=== PATIENT | male | born 1960 | race Caucasian/White ===

== ENCOUNTER 2020-03-11 22:12 | Emergency (ER) | payer SELFPAY ==
[~2020-03-11] VITALS: Ht 167.6 cm; Wt 71.2 kg
--- NOTE | 2020-03-11 22:32 | Emergency Department Note ---
History of Present Illnes History of Present Illness Chief Complaint: Alcohol Abuse/Intoxication History of Present Illness This is a 59 year old male Chief Complaint Comment 59 Y/O MALE AAOX3 PRESENTS TO ED WITH REPORT OF "CRYING [place] THE [employer]." THE POLICE CALLED EMS TO EVAL PATIENT; PT DENIES ANY ABNORMAL S/S AT THIS TIME; STRONG ETOH NOTED; PT ALSO REPORTS RECENT IV HEROIN USE WITHIN PAST WEEK; Patient refuses to answer questions. Historian: Patient Arrival Mode: [place] [employer] Coordinator Required: No Onset (how long ago): unknown Location: None Quality: None Radiation: Reports non-radiation Severity: unable to specify Onset quality: unable to specify Duration (how long): hour(s) Timing of current episode: unable to specify Progression: unchanged Chronicity: new Context: Denies recent illness, Denies recent surgery Relieving factors: none Exacerbating factors: none Associated symptoms: Reports denies other symptoms Treatments prior to arrival: none (DANITA STEEN MD) Past Medical/Family History Physician Review I have reviewed the patient's past medical and family history. Any updates have been documented here. (DANITA STEEN MD) Past Medical History Recent Fever: No Clinical Suspicion of Infectio: No New/Unexplained Change in Ment: No Past Medical History: Hypertension Other Medical History: ETOH ABUSE HEROIN DRUG ABUSE Other Surgery: ABDOMEN SX (DANITA STEEN MD) Review of Systems Review of Systems Constitutional: Reports no symptoms EENTM: Reports no symptoms Cardiovascular: Reports no symptoms Respiratory: Reports no symptoms Gastrointestinal: Reports no symptoms Genitourinary: Reports no symptoms Musculoskeletal: Reports no symptoms Integumentary: Reports no symptoms Neurological: Reports no symptoms Psychological: Reports no symptoms Endocrine: Reports no symptoms Hematological/Lymphatic: Reports no symptoms (DANITA STEEN MD) Physical Exam Related Data Allergies: Coded Allergies: No Known Allergies (Unverified , 03/11/20) Triage Vital Signs Vital Signs Date Time Temp Pulse Resp B/P (MAP) Pulse Ox O2 Delivery O2 Flow Rate FiO2 03/11/20 22:19 98.2 94 16 104/62 99 Room Air Vital signs reviewed: Yes (DANITA STEEN MD) Physical Exam CONSTITUTIONAL Constitutional: Present well-developed, Present well-nourished HENT HENT: Present normocephalic, Present atraumatic, Present oropharynx clear/moist, Present nose normal HENT L/R: Present left ext ear normal, Present right ext ear normal EYES Eyes: Reports PERRL, Reports conjunctivae normal NECK Neck: Present ROM normal PULMONARY Pulmonary: Present effort normal, Present breath sounds normal CARDIOVASCULAR Cardiovascular: Present regular rhythm, Present heart sounds normal, Present capillary refill normal, Present normal rate GASTROINTESTINAL Abdominal: Present soft, Present nontender, Present bowel sounds normal GENITOURINARY Genitourinary: Present exam deferred SKIN Skin: Present warm, Present dry MUSCULOSKELETAL Musculoskeletal: Present ROM normal NEUROLOGICAL Neurological: Present alert, Present oriented x 3, Present no gross motor or sensory deficits PSYCHOLOGICAL Psychological: Present other (Refuses to answer questions); Absent judgement normal (DANITA STEEN MD) Assessment & Plan Medical Decision Making MDM 59 y.o M presents with no CC. Brought in by EMS per police request for intoxication. Refuses to answer questions. Per EMS history of ETOH and [place] on board tonight. Tox work up shows ETOH 300 and positive benzo's. Patient then later stated to nursing staff that he wanted to . MAT team to evaluate patient once alcohol decreases. (DANITA STEEN MD) Reassessment Reassessment time: 22:32 Reassessment Well appearing, NAD (DANITA STEEN MD) Reassessment PT S/E BY ME, EtOH IMPROVED, PT SEEMS DEPRESSED BUT NO CURRENT SI/HI, SAYS HE WANTS TO GO HOME - WILL HAVE MAT TEAM EVAL. MAT TEAM FEELS PT IS SAFE TO GO HOME, NO NEED FOR INPATIENT TREATMENT, WILL DC WITH THEIR RECOMMENDATIONS - RESOURCES FOR REHAB, [facility], COUNSELLING/RECOVERY PROVIDED (KAYLYNN RAJPUT MD) Assessment & Plan Final Impression: (1) Intoxication (DANITA STEEN MD) Final Impression: (1) Intoxication (2) Depression (KAYLYNN RAJPUT MD) Depart Disposition: HOME, SELF-CARE Last Vital Signs Date Time Temp Pulse Resp B/P (MAP) Pulse Ox O2 Delivery O2 Flow Rate FiO2 03/11/20 22:19 98.2 94 16 104/62 99 Room Air (DANITA STEEN MD) DANITA STEEN MD Mar 11, 2020 22:32 KAYLYNN RAJPUT MD Mar 12, 2020 11:02
[2020-03-11] MEDS ORDERED: SODIUM CHLORIDE 0.9% 1000ML 1,000 ML IV SCH (22:45)
[2020-03-11 23:01] LABS: BASOPHILS # (AUTO) 0.1 (0.0-0.1); BASOPHILS % 0.7 % (0.0-1.0); EOSINOPHILS # (AUTO) 0.3 (0.0-0.4); EOSINOPHILS % 3.8 % (0.0-6.0); HEMATOCRIT 41.3 % (38.2-49.6); HEMOGLOBIN 13.6 g/dL (14.0-18.0); LYMPHOCYTES # (AUTO) 2.7 (1.0-3.2); LYMPHOCYTES % 38.3 % (18.0-39.1); MEAN CORPUSCULAR HEMOGLOBIN 29.2 pg (28-32); MEAN CORPUSCULAR HGB CONC 32.9 g/dL (31-35); MEAN CORPUSCULAR VOLUME 88.6 fL (81-99); MONOCYTES # (AUTO) 0.6 (0.2-0.8); MONOCYTES % 7.9 % (4.4-11.3); NEUTROPHILS # (AUTO) 3.5 (2.1-6.9); PLATELET COUNT 151 x10e3/uL (140-360); RED BLOOD COUNT 4.66 x10e6/uL (4.3-5.7); RED CELL DISTRIBUTION WIDTH 13.4 % (11.7-14.4)
[2020-03-11 23:13] LABS: AMPHETAMINES SCREEN,URINE NEGATIVE (NEGATIVE); BENZODIAZEPINES SCREEN,URINE POSITIVE (NEGATIVE); BILIRUBIN,URINE NEGATIVE (NEGATIVE); CLARITY,URINE CLEAR (CLEAR); COLOR,URINE YELLOW (YELLOW); KETONES,URINE NEGATIVE (NEGATIVE); LEUKOCYTE ESTERASE ,URINE NEGATIVE (NEGATIVE); NITRITE,URINE NEGATIVE (NEGATIVE); PHENCYCLIDINE SCREEN,URINE NEGATIVE (NEGATIVE); PROTEIN,URINE DIPSTICK NEGATIVE (NEGATIVE); URINE UROBILINOGEN 0.2 mg/dL (0.2 - 1)
[2020-03-11 23:17] LABS: BACTERIA,URINE FEW /HPF; EPITHELIAL CELLS,URINE FEW /LPF; RBC,URINE 0-5 /HPF (0-5); WBC,URINE (MAN) 0-5 /HPF (0-5)
[2020-03-11 23:21] LABS: ALANINE AMINOTRANSFERASE 14 IU/L (0-55); ALBUMIN/GLOBULIN RATIO 1.3 (0.8-2.0); ALKALINE PHOSPHATASE 70 IU/L (40-150); ANION GAP 15.7 mmol/L (8-16); BLOOD UREA NITROGEN 10 mg/dL (7-26); BUN/CREATININE RATIO 11 (6-25); CALCIUM 9.2 mg/dL (8.4-10.2); CARBON DIOXIDE 23 mmol/L (22-29); CHLORIDE 109 mmol/L (98-107); CREATININE, SERUM 0.95 mg/dL (0.72-1.25); EST GLOMERULAR FILTRATION RATE > 60 ML/MIN (60-); GLUCOSE 79 mg/dL (74-118); POTASSIUM 3.7 mmol/L (3.5-5.1); SODIUM 144 mmol/L (136-145)
[2020-03-11 23:24] LABS: SALICYLATE < 5.0 mg/dL (0-30)
--- NOTE | 2020-03-11 23:27 | Diagnostic Imaging Report ---
EXAMINATION: Head CT without contrast. HISTORY:Altered mental status. COMPARISON:None. TECHNIQUE: Multidetector axial images were obtained from the foramen magnum to the vertex without contrast. The images were reconstructed using brain and bone algorithms. Thin section brain images were reformatted into coronal and sagittal planes. Dose modulation, iterative reconstruction, and/or weight based adjustment of the mA/kV was utilized to reduce the radiation dose to as low as reasonably achievable. Intravenous contrast: None IMAGE QUALITY: Acceptable. FINDINGS: Skull/scalp: No lytic or blastic. lesions. No surgical changes. Parenchyma: Nonspecific few, scattered supratentorial white matter hypodensity are likely related to small vessel ischemic changes. No acute hemorrhage, mass or acute major vascular territorial infarct. Arteries: No density suggestive of thrombosis. Dural sinuses: No abnormal density suggestive of thrombosis. Ventricles: Mild compensated dilatation due to volume loss. No acute hydrocephalus. Extra-axial spaces: No abnormal density. Brain volume: Mild generalized cerebral volume loss. Craniocervical junction: No mass, Chiari malformation, or basilar invagination. Sella: No mass. Paranasal/mastoid sinuses: Mild mucosal thickening in bilateral ethmoid sinuses. IMPRESSION: No acute intracranial abnormality. Mild supratentorial white matter microvascular ischemic changes. Mild generalized cerebral volume loss. Signed by: Dr. Elinor Guzman M.D. on 03/11/2020 11:24 PM
[2020-03-11 23:35] LABS: THYROID STIMULATING HORMONE 0.613 uIU/mL (0.350-4.940)
--- NOTE | 2020-03-12 02:30 | NUR ---
SITTER REMAINS AT BS, PT RESTING WITH NAD NOTED, RESP ARE EVEN AND UNLABORED, O2 SAT RA 98%
--- NOTE | 2020-03-12 03:15 | NUR ---
LAB OBTAINED PER MD ORDERS
--- NOTE | 2020-03-12 07:00 | NUR ---
received report from off going nurse. patient in room up walking and talking loudly. entered room and talked with patient. reports he wants to go home. patient is walking without assistance and speaking in complete, comprehensible sentences. advised pt that there was additional lab work to check blood ETOH levels and patient verbilized understanding.
--- NOTE | 2020-03-12 08:00 | NUR ---
morning meal tray deliverd to patient.
--- NOTE | 2020-03-12 10:10 | NUR ---
MAT BUILDING GUARD DEPUTY SHERIFF IN ER TO EVAL PATIENT.
--- OUTSIDE RECORDS SUMMARY | 2020-03-13 19:28 | XMS REPORT | Continuity of Care Document ---
Author Author [facility] t Organization [facility] Address [address] [place] [id number] Phone Unavailable Care Team Providers Care Police Dispatcher Name Role Phone Rios Leggett Attphys Unavailable Problems This patient has no known problems. Allergies, Adverse Reactions, Alerts This patient has no known allergies or adverse reactions. Medications This patient has no known medications. Procedures This patient has no known procedures. Results Test Description Test Time Test Comments Results Result Comments Source CT BRAIN WO 2020-03-11 23:20:00 [facility] 1960 Sex: M [facility] [address] [address] Patient Name: DIANNA SELF MR #: [id number] : 1960 Age/Sex: 59/M Req #: [id number] [facility] Physician: Ordered by: Danita Leggett MD Report #: [id number] Location: ER Room/Bed: Procedure: [id number] CT/CT BRAIN WO Exam Date: Exam Time: REPORT STATUS: Signed EXAMINATION: Head CT without contrast. HISTORY:Altered mental status. COMPARISON:None. TECHNIQUE: Multidetector axial images were obtained from the foramen magnum to the vertex without contrast. The images were reconstructed using brain and bone algorithms. Thin section brain images were reformatted into coronal and sagittal planes. Dose modulation, iterative reconstruction, and/or weight based adjustment of the mA/kV was utilized to reduce the radiation dose to as low as reasonably achievable. Intravenous contrast: None IMAGE QUALITY: Acceptable. FINDINGS: Skull/scalp: No lytic or blastic. lesions. No surgical changes. Parenchyma: Nonspecific few, scattered supratentorial white matter hypodensity are likely related to small vessel ischemic changes. No acute hemorrhage, mass or acute major vascular territorial infarct. Arteries: No density suggestive of thrombosis. Dural sinuses: No abnormal density suggestive of thrombosis. Ventricles: Mild compensated dilatation due to volume loss. No acute hydrocephalus. Extra-axial spaces: No abnormal density. Brain volume: Mild generalized cerebral volume loss. Craniocervical junction: No mass, Chiari malformation, or basilar invagination. Sella: No mass. Paranasal/mastoid sinuses: Mild mucosal thickening in bilateral ethmoid sinuses. IMPRESSION: No acute intracranial abnormality. Mild supratentorial white matter microvascular ischemic changes. Mild generalized cerebral volume loss. Signed by: Dr. Elinor Guzman M.D. on 03/11/2020 11:24 PM Dictated By: ELINOR GUZMAN MD 23 Transcribed By: CHERYL on 03/11/202323 COPY TO: DANITA LEGGETT MD
== END 2020-03-12 12:28 | disposition home or self-care (01) ==
LOC: ER 23:28
DX: F10.129 Alcohol abuse with intoxication, unspecified (principal); F13.90 Sedative, hypnotic, or anxiolytic use, unspecified, uncomplicated; F32.9 Major depressive disorder, single episode, unspecified; I10 Essential (primary) hypertension
CPT/HCPCS: 36415; 70450; 80053; 80307; 80320; 80329 ×2; 81001; 84443; 85025; 93005; 99284; J7030